=== PATIENT | male | born 1990 | race Caucasian/White ===

== ENCOUNTER → 2017-05-22 | Outpatient (CLI) | payer BC ==
[~2017-05-22] MED LIST: MULT-506 PO; OMEP40CA41 PO
[2017-05-22 17:27] LABS: HEMATOCRIT 41.9 % (42-52); MEAN CORPUSCULAR HEMOGLOBIN 29.2 pg (25-34); MEAN CORPUSCULAR HGB CONC 34.4 g/dl (32-36); MEAN PLATELET VOLUME 9.8 fL (7.4-10.4); PLATELET COUNT 283 K/uL (130-400); RED BLOOD COUNT 4.93 M/uL (4.7-6.1)
[2017-05-22 17:51] LABS: BLOOD UREA NITROGEN 16 mg/dl (7-18); BUN/CREATININE RATIO 19.5 (10-20); CALCIUM 9.4 mg/dl (8.5-10.1); CARBON DIOXIDE 29 mmol/L (21-32); CHLORIDE 105 mmol/L (98-107); GLUCOSE 89 mg/dl (70-99); SODIUM 139 mmol/L (136-145)
[2017-05-22 18:01] LABS: BASO % 0.1 %; BASO ABS # 0.01 K/uL (0-0.2); COMPLETE YES; ECHINOCYTES 1+; EOS % 1.9 %; IG% 0.1 %; LYMPH % 52.9 %; LYMPH ABS # 3.65 K/uL (1.2-3.4); MONO % 8.8 %; NEUT % 36.2 %
[2017-05-22 18:02] LABS: ALB/GLOB RATIO 1.2 (0.9-2); ALKALINE PHOSPHATASE 69 U/L (45-117); ALT/SGPT 149 U/L (12-78); AST/SGOT 520 U/L (15-37); C-REACTIVE PROTEIN 0.39 mg/dl (0-0.29)
== END | disposition home or self-care (01) ==
LOC: C.LABPBG 15:50
PROVIDERS: ATTEND Registered Nurse
DX: R10.9 Unspecified abdominal pain (principal)

== ENCOUNTER → 2017-05-27 | Outpatient (CLI) | payer BC ==
[2017-05-27 13:27] LABS: FERRITIN 79.1 ng/ml (8.0-388.0)
[2017-05-31 19:31] LABS: ALPHA-1-ANTITRYPSIN TC 67710E 131 MG/DL (83-199); IGA SERUM 341 mg/dL (81-463); TIS TRANS IGA 1 U/mL (<4)
== END | disposition home or self-care (01) ==
LOC: C.ULTR 11:05
PROVIDERS: ATTEND Registered Nurse
DX: R74.8 Abnormal levels of other serum enzymes (principal)

== ENCOUNTER → 2017-05-31 | Day surgery (SDC) | payer OTHER, BC ==
[2017-05-17 15:14] VITALS: Ht 165.1 cm; Wt 75.0 kg
--- NOTE | 2017-05-27 11:46 | DIAGNOSTIC IMAGING REPORT ---
ABDOMINAL ULTRASOUND, RIGHT UPPER QUADRANT HISTORY: Elevated liver enzymes. COMPARISON: None. FINDINGS: Liver morphology is normal. No hepatic lesions are identified. There is no biliary ductal dilatation. Common bile duct measures 3 mm in caliber. The gallbladder is normal. There are no gallstones. Pancreas is obscured by overlying bowel gas. There is no right hydronephrosis. IMPRESSION: 1. No significant abnormality identified within the right upper quadrant. 2. Pancreas obscured by bowel gas. Electronically signed by: Alexander Gardner M.D. 05/27/2017 11:45 AM Dictated Date/Time: 05/27/2017 11:44 AM
[~2017-05-31] VITALS: Ht 165.1 cm; Wt 75.0 kg
[~2017-05-31] MED LIST changes: +LIDOCAINE HCL 2% 2 ML VIAL (20MG/ML) ONE; +PROPOFOL IV EMULSION 10 MG/ML 20 ML VIAL IV ONE; +SODIUM CHLORIDE 0.9% 500ML 500 ML IV ONE
--- NOTE | 2017-05-31 12:58 | Endo History and Physical ---
History & Physical Date of Service: May 31, 2017. Chief Complaint: Abdominal pain, chronic diarrhea Referring Physician: Dr. Andrew Oneill History of Present Illness 26 yo CM who presents for colonoscopy secondary to abdominal pain and chronic diarrhea. Past Surgical History Hx Cardiac Surgery: No Hx Internal Defibrillator: No Hx Pacemaker: No Hx Abdominal Surgery: No Hx of Implantable Prosthesis: No Hx Post-Op Nausea and Vomiting: No Hx Cancer Surgery: No Hx Thoracic Surgery: No Hx Orthopedic: Yes (LT/RT SHOULDER SURGERY) Hx Urinary Tract Surgery: Yes (URETHRA SURGERY AGE 8) Family History IBD Social History Smoking Status: Never Smoker Hx Substance Use: No Hx Alcohol Use: Yes (OCCASIONAL) Allergies Coded Allergies: NO KNOWN DRUG ALLERGIES (Verified Allergy, Unknown, ., 05/17/17) Uncoded Allergies: DUST, HORSES (Allergy, Unknown, ITCHY EYES, SNEEZING, 01/22/15) Current Medications Reported Home Medications Medications Dose Route/Sig Max Daily Dose Days Date Category Multivitamin (Multivitamins) Tab 1 Tab PO DAILY 05/17/17 Reported Prilosec (Omeprazole) 40 Mg Cap 40 Mg PO DAILY 05/17/17 Reported Vital Signs Weight (Kilograms): 75 Height (Feet): 5 Height (Inches): 5 Date Time Temp Pulse Resp B/P (MAP) Pulse Ox O2 Delivery O2 Flow Rate FiO2 05/31/17 11:37 36.9 89 18 140/79 (99) 99 Room Air Physical Exam General Appearance: WD/WN, no apparent distress Respiratory/Chest: Auscultation: breath sounds normal Cardiovascular: Heart Auscultation: RRR Abdomen: Bowel Sounds: normal Inspection & Palpation: soft, non-distended, no tenderness, guarding & rebound Assessment and Plan Assessment: 26 yo CM who presents for colonoscopy secondary to abdominal pain and chronic diarrhea. Plan: Proceed with colonoscopy.
--- NOTE | 2017-05-31 13:45 | Discharge Instructions ---
Endoscopy Patient Instructions Date / Procedure(s) Performed May 31, 2017. Colonoscopy Allergy Information Coded Allergies: NO KNOWN DRUG ALLERGIES (Verified Allergy, Unknown, ., 05/17/17) Uncoded Allergies: DUST, HORSES (Allergy, Unknown, ITCHY EYES, SNEEZING, 01/22/15) Discharge Date / Findings May 31, 2017. Random colon biopsies Stool Aspirate collected Medication Instructions OK to resume all medications today as prescribed Reported Home Medications Medications Dose Route/Sig Max Daily Dose Days Date Category Multivitamin (Multivitamins) Tab 1 Tab PO DAILY 05/17/17 Reported Prilosec (Omeprazole) 40 Mg Cap 40 Mg PO DAILY 05/17/17 Reported Provider Instructions Activity Restrictions - No exercising or heavy lifting for 24 hours. - Do not drink alcohol the day of the procedure. - Do not drive a car or operate machinery until the day after the procedure. - Do not make any important decisions or sign important papers in 24 hours after the procedure. Following Day: - Return to full activity which may include returning to work/school. Diet Start your diet with liquids and light foods (jello, soup, juice, toast). Then eat your usual diet if not nauseated. Treatment For Common After Affects For mild abdominal pain, bloating, or excessive gas: - Rest - Eat lightly - Lie on right side Follow-Up Information Follow-up with Dr. Andrew Oneill as scheduled Anesthesia Information What You Should Know You have had a procedure that required some medicine to reduce anxiety and discomfort. This treatment is called moderate sedation. After receiving the treatment, you may be sleepy, but you will be able to breathe on your own. The effects of the treatment may last for several hours. Follow these instructions along with Activity/Diet recommendations noted above: * Do NOT do anything where dizziness or clumsiness would be dangerous. * Rest quietly at home today, then you can be up and about tomorrow. * Have a responsible person stay with you the rest of today. * You may have had an I.V. today. If so, you may take the dressing off later today. Recommendations Call your doctor if: * Trouble breathing * Continuous vomiting for more than 24 hours * Temperature above 101 degrees * Severe abdominal pain or bloating * Pain not relieved by pain medicine ordered * There is increased drainage or redness from any incision * A large amount of rectal bleeding greater than 2-3 tablespoons. (If you had a polyp/s removed or have hemorrhoids, a small amount of blood - from the rectum is to be expected.) * You have any unanswered questions or concerns. IN THE EVENT OF A SERIOUS EMERGENCY, GO TO THE NEAREST EMERGENCY ROOM Your discharge instructions were prepared by provider Lai Burrell. Patient Instructions Signature Page Umer Lynch Patient (or Guardian) Signature/Date: I have read and understand the instructions given to me by my caregivers. Caregiver/RN/Doctor Signature/Date: The above-named patient and/or guardian has received patient instructions on this date. + Original Patient Signature Page (only) stays with chart. Please make copy for patient.
--- NOTE | 2017-05-31 13:46 | Anesthesiology Progress Note ---
Anesthesia Post Op Note Date & Time May 31, 2017 at 13:46 Vital Signs Pain Intensity: 0 Vital Signs Past 12 Hours Date Time Temp Pulse Resp B/P (MAP) Pulse Ox O2 Delivery O2 Flow Rate FiO2 05/31/17 13:39 78 18 127/72 (90) 99 Room Air 05/31/17 13:24 87 16 118/72 (87) 97 Room Air 05/31/17 11:37 36.9 89 18 140/79 (99) 99 Room Air Notes Mental Status: alert / awake / arousable, participated in evaluation Pt Amnestic to Procedure: Yes Nausea / Vomiting: adequately controlled Pain: adequately controlled Airway Patency, RR, SpO2: stable & adequate BP & HR: stable & adequate Hydration State: stable & adequate Anesthetic Complications: no major complications apparent
--- NOTE | 2017-05-31 13:49 | GI REPORT ---
Procedure Date: 05/31/2017 1:02 PM Procedure: Colonoscopy Indications: Generalized abdominal pain, Chronic diarrhea Medicines: Monitored Anesthesia Care Complications: No immediate complications. Estimated Blood Loss: Estimated blood loss: none. Procedure: Pre-Anesthesia Assessment: - Prior to the procedure, a History and Physical was performed, and patient medications and allergies were reviewed. The patient's tolerance of previous anesthesia was also reviewed. The risks and benefits of the procedure and the sedation options and risks were discussed with the patient. All questions were answered, and informed consent was obtained. Prior Anticoagulants: The patient has taken no previous anticoagulant or antiplatelet agents. ASA Grade Assessment: II - A patient with mild systemic disease. After reviewing the risks and benefits, the patient was deemed in satisfactory condition to undergo the procedure. After I obtained informed consent, the scope was passed under direct vision. Throughout the procedure, the patient's blood pressure, pulse, and oxygen saturations were monitored continuously. The Scope was introduced through the anus and advanced to the terminal ileum. The colonoscopy was performed without difficulty. The patient tolerated the procedure well. The quality of the bowel preparation was good. The terminal ileum, ileocecal valve, appendiceal orifice, and rectum were photographed. Findings: The terminal ileum appeared normal. The colon (entire examined portion) appeared normal. Fluid aspiration for cytology was performed. Several random biopsies were obtained with cold forceps for histology in the entire colon. Impression: - The examined portion of the ileum was normal. - The entire examined colon is normal. Fluid aspiration performed. - Several random biopsies were obtained in the entire colon. Recommendation: - Resume previous diet. - Continue present medications. - Repeat colonoscopy for surveillance based on pathology results. - Return to primary care physician as previously scheduled. Lai Burrell DO 05/31/2017 1:48:40 PM This report has been signed electronically. Note Initiated On: 05/31/2017 1:02 PM I attest to the content of the Intraoperative Record and orders documented therein, exceptions below
[2017-05-31 13:54] VITALS: BP 120/77; PULSE 77; O2SAT 99
== END | disposition home or self-care (01) ==
LOC: C.GI 11:13
PROVIDERS: ATTEND Internal Medicine
DX: R10.84 Generalized abdominal pain (principal); R19.7 Diarrhea, unspecified; Z83.79 Family history of other diseases of the digestive system; Z79.899 Other long term (current) drug therapy

== ENCOUNTER → 2017-06-17 | Outpatient (CLI) | payer BC ==
[~2017-06-17] MED LIST changes: -LIDOCAINE HCL 2% 2 ML VIAL (20MG/ML) ONE; -PROPOFOL IV EMULSION 10 MG/ML 20 ML VIAL IV ONE; -SODIUM CHLORIDE 0.9% 500ML 500 ML IV ONE
[2017-06-17 14:04] LABS: AMYLASE 42 U/L (25-115)
[2017-06-17 14:10] LABS: ALKALINE PHOSPHATASE 79 U/L (45-117); ALT/SGPT 30 U/L (12-78); AST/SGOT 14 U/L (15-37)
== END | disposition home or self-care (01) ==
LOC: C.LAB 12:11
PROVIDERS: ATTEND Registered Nurse
DX: R74.8 Abnormal levels of other serum enzymes (principal); Z87.19 Personal history of other diseases of the digestive system